=== PATIENT | male | born 1950 | race Caucasian/White ===

== ENCOUNTER 2024-03-10 13:27 | Inpatient (IN) | payer BC ==
[~2024-03-10] VITALS: Ht 167.6 cm; Wt 82.6 kg
[~2024-03-10 13:27] MED LIST: ALEN70TA27 PO; ATOR40TA68 PO; BACL10TA PO; DOCU-156 PO; DULO20CA19 PO; FAMO40TA7 PO; HYDR-3917 PO; LEVO175T7 PO; POLY238P32 PO; PREG100C55 PO; SENN8.6T19 PO; SUCR1TAB2 PO
[2024-03-10 13:36] VITALS: BP_SYST 110; PULSE 81; RESP 22; TEMP 97.3; O2SAT 98
[2024-03-10 14:28] LABS: BASOPHILS % (AUTO) 0.4 % (0.0-2.0); EOSINOPHILS % (AUTO) 0.1 % (0.0-4.0); HEMATOCRIT 38.5 % (36-54); HEMOGLOBIN 12.9 g/dL (14.0-18.0); LYMPHOCYTES # (AUTO) 0.9 K/uL (1.0-5.5); LYMPHOCYTES % (AUTO) 8.3 % (20.5-51.5); MEAN CORPUSCULAR HEMOGLOBIN 30 pg (27-31); MEAN CORPUSCULAR HGB CONC 34 % (32-36); MEAN CORPUSCULAR VOLUME 89 fL (79.0-98.0); MONOCYTES # (AUTO) 0.6 K/uL (0.0-1.0); MONOCYTES % (AUTO) 5.3 % (1.7-9.3); NEUTROPHILS # (AUTO) 9.5 K/uL (1.8-7.7); NEUTROPHILS % (AUTO) 85.9 % (40.0-70.0); PLATELET COUNT (AUTO) 292 K/uL (130-430); RED BLOOD CELL COUNT(AUTO) 4.32 MIL/uL (4.2-6.2); RED CELL DISTRIBUTION WIDTH 14.9 % (9.0-15.0); WHITE BLOOD COUNT (AUTO) 11.1 K/uL (4.8-10.8)
[2024-03-10 14:53] LABS: ALANINE AMINOTRANSFERASE 8 U/L (12-78); ALBUMIN 2.1 g/dL (3.4-4.8); ANION GAP 8 (5-15); ASPARTATE AMINOTRANSFERASE 22 U/L (10-37); BILIRUBIN,DIRECT 0.2 mg/dL (0.0-0.3); CALCIUM 7.4 mg/dL (8.4-11.0); CARBON DIOXIDE 24 mmol/L (23-29); CHLORIDE 91 mmol/L (98-107); CREATININE 2.05 mg/dL (0.55-1.30); GLUCOSE 110 mg/dL (74-106); LIPASE 100 U/L (16-77); SODIUM SERUM 123 mmol/L (136-145); TOTAL BILIRUBIN 0.5 mg/dL (0.0-1.0); TOTAL PROTEIN, SERUM 5.8 g/dL (6.4-8.3); UREA NITROGEN, BLOOD 35 mg/dL (8-21)
[2024-03-10 14:55] LABS: POTASSIUM 6.1 mmol/L (3.5-5.1)
[2024-03-10] MEDS ORDERED: SODIUM BICARBONATE 8.4% JECT 50 MEQ in D5W 1,000 ML IVP SCH (15:00)
[2024-03-10] MEDS ORDERED: SODIUM BICARBONATE 8.4% JECT 50 MEQ/50 ML SYRINGE ONE (15:18)
[2024-03-10] MEDS: INSULIN REGULAR, HUMAN 10 UNITS/0.1 ML, 3 ML VIAL IVP ONE (15:30)
[2024-03-10] MEDS: DEXTROSE 50% JECT 50 ML DISP.SYRIN IVP ONE (15:34)
[2024-03-10] MEDS: SODIUM ZIRCONIUM CYCLOSILICATE 10 GM POWD.PACK PO ONE (15:34)
[2024-03-10] MEDS: NACL 0.9% 1,000 ML IV ONE (15:35)
[2024-03-10] MEDS ORDERED: ALBUTEROL SULFATE 0.083% 2.5 MG/3 ML VIAL.NEB INH PRN (16:00)
[2024-03-10] MEDS ORDERED: ACETAMINOPHEN 325 MG TABLET PO PRN ×2 (16:00→16:45)
[2024-03-10] MEDS ORDERED: MORPHINE 2 MG/ML INJ. SYRINGE IVP PRN (16:00)
[2024-03-10] MEDS ORDERED: ONDANSETRON HCL 4 MG/2 ML VIAL IVP PRN (16:00)
[2024-03-10 16:26] VITALS: PULSE 83; O2SAT 94
[2024-03-10 16:46] LABS: ANION GAP 4 (5-15); CALCIUM 7.1 mg/dL (8.4-11.0); CARBON DIOXIDE 28 mmol/L (23-29); CHLORIDE 92 mmol/L (98-107); CREATININE 1.98 mg/dL (0.55-1.30); GLUCOSE 178 mg/dL (74-106); POTASSIUM 5.2 mmol/L (3.5-5.1); SODIUM SERUM 124 mmol/L (136-145); UREA NITROGEN, BLOOD 40 mg/dL (8-21)
[2024-03-10] MEDS: NACL 0.9% 1,000 ML IV SCH (17:16)
[2024-03-10] MEDS: FUROSEMIDE 20 MG/2 ML VIAL IVP ONE (17:16)
[2024-03-10] MEDS ORDERED: CETI10CA PO (18:05)
[2024-03-10] MEDS ORDERED: ONDA-8 TL (18:26)
[2024-03-10 19:25] LABS: BLOOD, URINE NEGATIVE (NEGATIVE); CLARITY/URINE CLEAR (CLEAR); COLOR,URINE YELLOW (YELLOW); GLUCOSE,URINE NEGATIVE (NEGATIVE); KETONES,URINE TRACE (NEGATIVE); LEUKOCYTE ESTERASE ,URINE NEGATIVE (NEGATIVE); NITRITE, URINE NEGATIVE (NEGATIVE); PH,URINE 5.5 (5.0-8.0); PROTEIN URINE NEGATIVE (NEGATIVE)
[2024-03-10 19:33] LABS: BILIRUBIN,URINE 1+ (NEGATIVE)
[2024-03-10 21:49] LABS: ANION GAP 8 (5-15); CALCIUM 7.2 mg/dL (8.4-11.0); CARBON DIOXIDE 27 mmol/L (23-29); CHLORIDE 91 mmol/L (98-107); CREATININE 1.93 mg/dL (0.55-1.30); GLUCOSE 98 mg/dL (74-106); POTASSIUM 5.3 mmol/L (3.5-5.1); SODIUM SERUM 126 mmol/L (136-145); THYROID STIMULATING HORMONE 62.77 uIu/mL (0.34-4.82); UREA NITROGEN, BLOOD 38 mg/dL (8-21)
[2024-03-10 22:31] VITALS: BP_SYST 103; PULSE 84; RESP 20; TEMP 98.8
[2024-03-10 22:57] VITALS: O2SAT 98
[2024-03-11] VITALS (9 sets, daily range): BP systolic 101–114; PULSE 87–95; RESP 17–20; TEMP 96.8–98.4; O2SAT 2–98
[2024-03-11] MEDS: HYDROcodone/ACETAMIN 10-325 MG TAB PO PRN (01:12)
[2024-03-11 05:37] LABS: BASOPHILS % (AUTO) 0.2 % (0.0-2.0); EOSINOPHILS # (AUTO) 0.1 K/uL (0.0-0.4); EOSINOPHILS % (AUTO) 0.7 % (0.0-4.0); HEMATOCRIT 37.1 % (36-54); HEMOGLOBIN 12.4 g/dL (14.0-18.0); LYMPHOCYTES % (AUTO) 10.2 % (20.5-51.5); MEAN CORPUSCULAR HEMOGLOBIN 30 pg (27-31); MEAN CORPUSCULAR HGB CONC 33 % (32-36); MEAN CORPUSCULAR VOLUME 89 fL (79.0-98.0); MONOCYTES # (AUTO) 0.7 K/uL (0.0-1.0); NEUTROPHILS # (AUTO) 7.8 K/uL (1.8-7.7); NEUTROPHILS % (AUTO) 81.9 % (40.0-70.0); PLATELET COUNT (AUTO) 284 K/uL (130-430); RED BLOOD CELL COUNT(AUTO) 4.17 MIL/uL (4.2-6.2); RED CELL DISTRIBUTION WIDTH 14.6 % (9.0-15.0); WHITE BLOOD COUNT (AUTO) 9.6 K/uL (4.8-10.8)
[2024-03-11 06:07] LABS: ALANINE AMINOTRANSFERASE 8 U/L (12-78); ALBUMIN 1.8 g/dL (3.4-4.8); ANION GAP 11 (5-15); ASPARTATE AMINOTRANSFERASE 18 U/L (10-37); CALCIUM 7.1 mg/dL (8.4-11.0); CARBON DIOXIDE 24 mmol/L (23-29); CHLORIDE 92 mmol/L (98-107); GLUCOSE 98 mg/dL (74-106); POTASSIUM 5.2 mmol/L (3.5-5.1); SODIUM SERUM 127 mmol/L (136-145); TOTAL BILIRUBIN 0.5 mg/dL (0.0-1.0); UREA NITROGEN, BLOOD 35 mg/dL (8-21)
[2024-03-11] MEDS: SODIUM ZIRCONIUM CYCLOSILICATE 10 GM POWD.PACK PO ONE (10:49)
[2024-03-11] MEDS: HYDROcodone/ACETAMIN 5-325 MG TAB (NORCO/ VICODIN) PO PRN (12:31)
[2024-03-11] MEDS: SODIUM BICARBONATE 8.4% JECT 50 MEQ in D5W 1,000 ML IVP SCH (12:32)
[2024-03-11] MEDS ORDERED: POLYETHYLENE GLYCOL 3350, 17 GM/ POWD.PACK PO PRN (22:45)
[2024-03-11] MEDS: DOCUSATE SODIUM 100 MG CAPSULE PO SCH (23:13)
[2024-03-12] MEDS: ZOLPIDEM TARTRATE 5 MG TABLET PO PRN (00:34)
[2024-03-12] MEDS: guaiFENesin ER 600 MG TAB PO SCH (00:34)
[2024-03-12 01:28] VITALS: BP_SYST 104; PULSE 92; RESP 17; TEMP 98.7; O2SAT 95
[2024-03-12] MEDS: LEVOTHYROXINE SODIUM 0.05 MG TABLET PO SCH (06:22)
[2024-03-12 07:14] LABS: ALANINE AMINOTRANSFERASE 8 U/L (12-78); ANION GAP 10 (5-15); ASPARTATE AMINOTRANSFERASE 27 U/L (10-37); CALCIUM 7.3 mg/dL (8.4-11.0); CARBON DIOXIDE 26 mmol/L (23-29); CHLORIDE 90 mmol/L (98-107); CREATININE 1.68 mg/dL (0.55-1.30); GLUCOSE 140 mg/dL (74-106); POTASSIUM 4.7 mmol/L (3.5-5.1); SODIUM SERUM 126 mmol/L (136-145); TOTAL BILIRUBIN 0.4 mg/dL (0.0-1.0); TOTAL PROTEIN, SERUM 5.5 g/dL (6.4-8.3); UREA NITROGEN, BLOOD 37 mg/dL (8-21)
[2024-03-12 07:37] LABS: BASOPHILS % (AUTO) 0.2 % (0.0-2.0); EOSINOPHILS # (AUTO) 0.1 K/uL (0.0-0.4); HEMATOCRIT 36.4 % (36-54); HEMOGLOBIN 12.3 g/dL (14.0-18.0); LYMPHOCYTES # (AUTO) 1.2 K/uL (1.0-5.5); LYMPHOCYTES % (AUTO) 12.1 % (20.5-51.5); MEAN CORPUSCULAR HEMOGLOBIN 30 pg (27-31); MEAN CORPUSCULAR HGB CONC 34 % (32-36); MEAN CORPUSCULAR VOLUME 89 fL (79.0-98.0); MONOCYTES # (AUTO) 0.8 K/uL (0.0-1.0); NEUTROPHILS # (AUTO) 7.5 K/uL (1.8-7.7); NEUTROPHILS % (AUTO) 78.7 % (40.0-70.0); PLATELET COUNT (AUTO) 305 K/uL (130-430); RED BLOOD CELL COUNT(AUTO) 4.12 MIL/uL (4.2-6.2); RED CELL DISTRIBUTION WIDTH 14.8 % (9.0-15.0); WHITE BLOOD COUNT (AUTO) 9.6 K/uL (4.8-10.8)
[2024-03-12 08:00] VITALS: BP_SYST 103; PULSE 83; RESP 16; TEMP 97.1; O2SAT 92
[2024-03-12] MEDS ORDERED: POLYETHYLENE GLYCOL 3350, 17 GM/ POWD.PACK PO PRN (08:30)
[2024-03-12] MEDS: DOCUSATE SODIUM 100 MG CAPSULE PO SCH (08:50)
[2024-03-12 09:06] VITALS: O2SAT 92
[2024-03-12 11:43] VITALS: BP_SYST 92; PULSE 97; RESP 18; TEMP 97.9; O2SAT 93
[2024-03-12] MEDS ORDERED: FURO-150 PO (13:20)
[2024-03-12 13:40] VITALS: BP_SYST 92; PULSE 97; RESP 18; TEMP 97.9; O2SAT 93
== END 2024-03-12 14:22 | disposition home or self-care (01) | DRG 682 ==
LOC: SED 13:27 → STU 15:47
PROVIDERS: ADMIT Family Medicine; ATTEND Family Medicine
DX: N17.9 Acute kidney failure, unspecified (principal); E43 Unspecified severe protein-calorie malnutrition; C16.9 Malignant neoplasm of stomach, unspecified; R18.0 Malignant ascites; J96.10 Chronic respiratory failure, unspecified whether with hypoxia or hypercapnia; E87.1 Hypo-osmolality and hyponatremia; E87.5 Hyperkalemia; I12.9 Hypertensive chronic kidney disease with stage 1 through stage 4 chronic kidney disease, or unspecified chronic kidney disease; N18.9 Chronic kidney disease, unspecified; D72.829 Elevated white blood cell count, unspecified; Z68.29 Body mass index [BMI] 29.0-29.9, adult; Z79.899 Other long term (current) drug therapy; Z99.81 Dependence on supplemental oxygen
CPT/HCPCS: 36415; 71045; 76705; 80048; 80053; 80076; 81001; 81003; 82378; 82533; 82948; 83690; 83930; 83935; 84302; 84443; 85025; 87081; 94070; 94760; 99285; G0378; J1815; J1940; J7060